=== PATIENT | female | born 1970 | race Caucasian/White ===

== ENCOUNTER 2023-03-23 07:27 | Emergency (ER) | payer MEDICAID ==
[~2023-03-23] VITALS: Ht 172.7 cm; Wt 136.8 kg
[2023-03-23 08:30] LABS: BASOPHILS # (AUTO) 0.1 X10'3 (0-0.2); BASOPHILS % (AUTO) 1.1 % (0-1); EOSINOPHILS # (AUTO) 0.4 X10'3 (0-0.9); HEMOGLOBIN 15.5 g/dl (12.0-16.0); LYMPHOCYTES # (AUTO) 2.1 X10'3 (1.1-4.8); LYMPHOCYTES % (AUTO) 23.1 % (21-51); MONOCYTES # (AUTO) 0.5 X10'3 (0-0.9); MONOCYTES % (AUTO) 5.4 % (2-12); NEUTROPHILS # (AUTO) 5.9 X10'3 (1.8-7.7); NEUTROPHILS % (AUTO) 66.4 % (42-75); PLATELET COUNT 316 X10'3 (140-440); RED BLOOD COUNT 5.17 X10'6 (4.20-5.60); RED CELL DISTRIBUTION WIDTH 13.6 % (11.5-14.5); WHITE BLOOD COUNT 8.9 X10'3 (4.5-11.0)
[2023-03-23 08:43] LABS: ALANINE AMINOTRANSFERASE 27 U/L (12-78); ALBUMIN 3.7 G/DL (3.4-5.0); ALBUMIN/GLOBULIN RATIO 0.9 (1.1-1.5); ALKALINE PHOSPHATASE 93 IU/L (46-116); ANION GAP 6 (8-16); ASPARTATE AMINO TRANSFERASE 24 U/L (10-37); BILIRUBIN,TOTAL 0.6 MG/DL (0.1-1.0); BLOOD UREA NITROGEN 22 MG/DL (7-18); BUN/CREATININE RATIO 20.2 (10.0-20.0); CALCIUM 9.1 MG/DL (8.5-10.1); CHLORIDE 104 MMOL/L (99-107); CREATININE 1.09 MG/DL (0.40-0.90); GLUCOSE 105 MG/DL (70-104); SODIUM 137 MMOL/L (135-145); TOTAL CARBON DIOXIDE 27.4 MMOL/L (24-32); TOTAL PROTEIN 7.7 G/DL (6.4-8.2); eGFR 53 ML/MIN
[2023-03-23 08:48] LABS: APTT 27 SECONDS (22-32); D-DIMER 14.43 MG/L FEU (0-0.50)
[2023-03-23] MEDS ORDERED: apixaban 5mg tablet PO ONE (09:25)
[2023-03-23 10:15] VITALS: BP 137/85
[2023-03-23] MEDS ORDERED: APIX5TAB3 PO (10:53)
== END 2023-03-23 11:41 | disposition home or self-care (01) ==
LOC: ER 07:28
DX: I82.402 Acute embolism and thrombosis of unspecified deep veins of left lower extremity (principal); Z88.1 Allergy status to other antibiotic agents; Z79.899 Other long term (current) drug therapy
CPT/HCPCS: 36415; 80053; 85025; 85379; 85610; 85730; 93970; 99284